=== PATIENT | male | born 1960 | race Caucasian/White ===

== ENCOUNTER 2017-10-05 16:03 | Inpatient (IN) | payer OTHER ==
[2017-10-05 19:41] LABS: ADD MAN DIFF? NO
[2017-10-05 19:46] LABS: WHITE BLOOD COUNT 14.2 10^3/ul (4.8-10.8)
[2017-10-05 19:46] LABS: BASOPHIL # 0.1 10^3/ul (0.0-0.1); BASOPHILS % 0.4 % (0.0-2.0); EOSINOPHILS # 0.2 10^3/ul (0.0-0.5); EOSINOPHILS % 1.2 % (0.0-7.0); HEMATOCRIT 41.8 % (42.0-52.0); HEMOGLOBIN 13.6 g/dl (14.0-18.0); IMMATURE GRANS #M 0.05 10^3/ul; IMMATURE GRANS % (M) 0.4 %; LYMPHOCYTES # 2.4 10^3/ul (0.8-2.9); LYMPHOCYTES % 16.8 % (15.0-51.0); MEAN CORPUSCULAR HEMOGLOBIN 26.3 pg (29.0-33.0); MEAN CORPUSCULAR HGB CONC 32.5 g/dl (32.0-37.0); MEAN CORPUSCULAR VOLUME 80.9 fl (82.0-101.0); MEAN PLATELET VOLUME 11.6 fl (7.4-10.4); MONOCYTE # 1.4 10^3/ul (0.3-0.9); NEUTROPHIL # 10.2 10^3/ul (1.6-7.5); NEUTROPHILS % 71.2 % (39.0-77.0); PLATELET COUNT 286 10^3/UL (140-415); RED BLOOD COUNT 5.17 10^6/ul (4.70-6.10); RED CELL DISTRIBUTION WIDTH 12.9 % (11.5-14.5)
[2017-10-05 20:08] LABS: ANION GAP 17 (8-16); BLOOD UREA NITROGEN 30 mg/dl (7-20); CALCIUM 9.4 mg/dl (8.4-10.2); CARBON DIOXIDE 26 mmol/L (21-31); CHLORIDE 98 mmol/L (97-110); CREATININE 0.99 mg/dl (0.61-1.24); GLUCOSE 181 mg/dl (70-220); POTASSIUM 4.8 mmol/L (3.5-5.1); SODIUM 136 mmol/L (135-144)
[2017-10-05] MEDS: VANCOMYCIN 1 GM (PMX) 250 ML IVPB (20:32)
[2017-10-05] MEDS: SOD CHLORIDE 0.9% 1,000 ML IV (20:32)
[2017-10-05] MEDS: HYDROCODONE/APAP (5/325) TAB PO (21:09)
[2017-10-05] MEDS ORDERED: GLUCOSE GEL 15 GRAM TUBE BUCCAL (23:30)
[2017-10-05] MEDS ORDERED: DEXTROSE 50% 50 ML SYRINGE IV ×2 (23:30)
[2017-10-05] MEDS ORDERED: GLUCAGON 1 MG INJ IM (23:30)
[2017-10-05] MEDS ORDERED: GLUCOSE GEL 15 GRAM TUBE PO ×2 (23:30)
[2017-10-06] MEDS: INSULIN GLARGINE [LANTus] (100 UNITS/ML) SYG SC ×2 (00:10→20:19)
[2017-10-06] MEDS: ACCU-CHEK XX ×4 (07:00→20:22)
[2017-10-06] MEDS ORDERED: VANCOMYCIN IV PER PHARMACY XX (07:30)
[2017-10-06 07:48] LABS: ADD MAN DIFF? NO
[2017-10-06 08:01] LABS: WHITE BLOOD COUNT 11.8 10^3/ul (4.8-10.8)
[2017-10-06 08:01] LABS: BASOPHIL # 0.1 10^3/ul (0.0-0.1); BASOPHILS % 0.4 % (0.0-2.0); EOSINOPHILS # 0.2 10^3/ul (0.0-0.5); LYMPHOCYTES % 17.1 % (15.0-51.0); MEAN CORPUSCULAR HEMOGLOBIN 25.6 pg (29.0-33.0); MEAN CORPUSCULAR HGB CONC 31.6 g/dl (32.0-37.0); MONOCYTE # 1.3 10^3/ul (0.3-0.9); NEUTROPHIL # 8.2 10^3/ul (1.6-7.5); NEUTROPHILS % 69.2 % (39.0-77.0); PLATELET COUNT 275 10^3/UL (140-415); RED BLOOD COUNT 4.69 10^6/ul (4.70-6.10); RED CELL DISTRIBUTION WIDTH 13.1 % (11.5-14.5)
[2017-10-06 08:17] LABS: HEMOGLOBIN A1C 10.4 % (0-5.9)
[2017-10-06 08:36] LABS: ALANINE AMINOTRANSFERASE 22 IU/L (13-69); ALBUMIN 3.3 g/dl (3.3-4.9); ALBUMIN/GLOBULIN RATIO 1.06; ALKALINE PHOSPHATASE 76 IU/L (42-121); ANION GAP 13 (8-16); ASPARTATE AMINO TRANSFERASE 15 IU/L (15-46); BILIRUBIN,INDIRECT 0.4 mg/dl (0-1.1); BILIRUBIN,TOTAL 0.4 mg/dl (0.2-1.3); BLOOD UREA NITROGEN 23 mg/dl (7-20); CALCIUM 8.7 mg/dl (8.4-10.2); CARBON DIOXIDE 28 mmol/L (21-31); CHLORIDE 102 mmol/L (97-110); CHOL/HDL RATIO 4.7 RATIO; CHOLESTEROL 95 mg/dl (100-200); GLUCOSE 194 mg/dl (70-220); HDL CHOLESTEROL 20 mg/dl (28-71); LDL CHOLESTEROL,CALCULATED 54 mg/dl; POTASSIUM 4.4 mmol/L (3.5-5.1); SODIUM 139 mmol/L (135-144); TOTAL PROTEIN 6.4 g/dl (6.1-8.1); TRIGLYCERIDES 103 mg/dl (0-149)
[2017-10-06] MEDS: GABAPENTIN 300 MG CAP PO ×3 (08:38→20:14)
[2017-10-06] MEDS: metFORMIN 500 MG TAB PO ×2 (08:39→17:44)
[2017-10-06] MEDS: METOPROLOL (XL) 50 MG TAB PO (08:39)
[2017-10-06] MEDS: ASPIRIN (EC) 81 MG TAB PO (08:39)
[2017-10-06] MEDS: INSULIN ASPART [NOVOLOG] 3 ML PEN SC ×4 (08:43→20:18)
[2017-10-06] MEDS: HEPARIN 5,000 UNIT/0.5 ML VIAL SC ×2 (08:43→20:18)
[2017-10-06] MEDS ORDERED: TADALAFIL 5 MG PO (09:00)
[2017-10-06] MEDS ORDERED: CEFEPIME 1GM/50 ML (PMX) 50 ML IVPB (09:00)
[2017-10-06] MEDS: ONDANSETRON 4 MG INJ IV (09:19)
[2017-10-06] MEDS: LISINOPRIL 10 MG TAB PO (10:01)
[2017-10-06] MEDS: CEFEPIME 1GM/50 ML (PMX) 50 ML IVPB ×3 (10:02→21:26)
[2017-10-06] MEDS: VANCOMYCIN 1 GM 250 ML IVPB ×2 (12:42→23:33)
[2017-10-06] MEDS: ATORVASTATIN 40 MG TAB PO (20:14)
[2017-10-07] MEDS: CEFEPIME 1GM/50 ML (PMX) 50 ML IVPB (05:42)
[2017-10-07 05:51] LABS: ADD MAN DIFF? NO
[2017-10-07 06:00] LABS: BASOPHIL # 0.1 10^3/ul (0.0-0.1); BASOPHILS % 0.7 % (0.0-2.0); EOSINOPHILS # 0.3 10^3/ul (0.0-0.5); EOSINOPHILS % 2.2 % (0.0-7.0); HEMATOCRIT 38.7 % (42.0-52.0); HEMOGLOBIN 12.2 g/dl (14.0-18.0); LYMPHOCYTES # 2.8 10^3/ul (0.8-2.9); LYMPHOCYTES % 24.3 % (15.0-51.0); MEAN CORPUSCULAR HEMOGLOBIN 25.9 pg (29.0-33.0); MEAN CORPUSCULAR HGB CONC 31.5 g/dl (32.0-37.0); MEAN CORPUSCULAR VOLUME 82.2 fl (82.0-101.0); MEAN PLATELET VOLUME 12.2 fl (7.4-10.4); MONOCYTE # 1.3 10^3/ul (0.3-0.9); MONOCYTES % 10.9 % (0.0-11.0); NEUTROPHIL # 7.2 10^3/ul (1.6-7.5); NEUTROPHILS % 61.5 % (39.0-77.0); PLATELET COUNT 285 10^3/UL (140-415); RED BLOOD COUNT 4.71 10^6/ul (4.70-6.10)
[2017-10-07 06:00] LABS: WHITE BLOOD COUNT 11.7 10^3/ul (4.8-10.8)
[2017-10-07 06:41] LABS: ANION GAP 13 (8-16); BLOOD UREA NITROGEN 19 mg/dl (7-20); CALCIUM 8.8 mg/dl (8.4-10.2); CARBON DIOXIDE 31 mmol/L (21-31); CHLORIDE 100 mmol/L (97-110); CREATININE 1.09 mg/dl (0.61-1.24); GLUCOSE 163 mg/dl (70-220); POTASSIUM 4.9 mmol/L (3.5-5.1); SODIUM 139 mmol/L (135-144)
[2017-10-07] MEDS: ACCU-CHEK XX ×4 (07:00→21:00)
[2017-10-07] MEDS: LISINOPRIL 10 MG TAB PO (08:07)
[2017-10-07] MEDS: metFORMIN 500 MG TAB PO ×2 (08:07→17:45)
[2017-10-07] MEDS: GABAPENTIN 300 MG CAP PO ×3 (08:07→21:39)
[2017-10-07] MEDS: METOPROLOL (XL) 50 MG TAB PO (08:08)
[2017-10-07] MEDS: ASPIRIN (EC) 81 MG TAB PO (08:08)
[2017-10-07] MEDS: HEPARIN 5,000 UNIT/0.5 ML VIAL SC ×2 (08:14→21:43)
[2017-10-07] MEDS: INSULIN ASPART [NOVOLOG] 3 ML PEN SC ×4 (08:14→21:45)
[2017-10-07] MEDS: AMLODIPINE 5 MG TAB PO (12:39)
[2017-10-07] MEDS: VANCOMYCIN 1 GM 250 ML IVPB ×2 (12:39→23:30)
[2017-10-07] MEDS: ATORVASTATIN 40 MG TAB PO (21:39)
[2017-10-07] MEDS: INSULIN GLARGINE [LANTus] (100 UNITS/ML) SYG SC (21:44)
[2017-10-07 23:48] LABS: VANCOMYCIN,TROUGH 10.5 ug/ml (10.0-20.0)
[2017-10-08] MEDS: ACCU-CHEK XX ×4 (07:00→21:00)
[2017-10-08 07:36] LABS: ADD MAN DIFF? NO
[2017-10-08 07:42] LABS: BASOPHIL # 0.1 10^3/ul (0.0-0.1); BASOPHILS % 0.5 % (0.0-2.0); EOSINOPHILS # 0.3 10^3/ul (0.0-0.5); EOSINOPHILS % 2.7 % (0.0-7.0); HEMATOCRIT 37.9 % (42.0-52.0); HEMOGLOBIN 12.3 g/dl (14.0-18.0); LYMPHOCYTES # 2.2 10^3/ul (0.8-2.9); LYMPHOCYTES % 22.6 % (15.0-51.0); MEAN CORPUSCULAR HEMOGLOBIN 26.5 pg (29.0-33.0); MEAN CORPUSCULAR HGB CONC 32.5 g/dl (32.0-37.0); MEAN CORPUSCULAR VOLUME 81.5 fl (82.0-101.0); MEAN PLATELET VOLUME 11.4 fl (7.4-10.4); MONOCYTE # 1.1 10^3/ul (0.3-0.9); PLATELET COUNT 294 10^3/UL (140-415); RED BLOOD COUNT 4.65 10^6/ul (4.70-6.10); RED CELL DISTRIBUTION WIDTH 12.9 % (11.5-14.5)
[2017-10-08 07:42] LABS: WHITE BLOOD COUNT 9.5 10^3/ul (4.8-10.8)
[2017-10-08 08:05] LABS: ANION GAP 13 (8-16); BLOOD UREA NITROGEN 18 mg/dl (7-20); CALCIUM 8.9 mg/dl (8.4-10.2); CARBON DIOXIDE 29 mmol/L (21-31); CHLORIDE 100 mmol/L (97-110); CREATININE 0.97 mg/dl (0.61-1.24); GLUCOSE 175 mg/dl (70-220); POTASSIUM 4.4 mmol/L (3.5-5.1); SODIUM 138 mmol/L (135-144)
[2017-10-08] MEDS: CEFTRIAXONE 1 GM/50 ML (PMX) 50 ML IVPB (08:18)
[2017-10-08] MEDS: RIFAMPIN 300 MG CAP PO (08:23)
[2017-10-08] MEDS: ASPIRIN (EC) 81 MG TAB PO (08:23)
[2017-10-08] MEDS: GABAPENTIN 300 MG CAP PO ×3 (08:23→21:00)
[2017-10-08] MEDS: AMLODIPINE 5 MG TAB PO (08:24)
[2017-10-08] MEDS: METOPROLOL (XL) 50 MG TAB PO (08:24)
[2017-10-08] MEDS: LISINOPRIL 10 MG TAB PO (08:25)
[2017-10-08] MEDS: INSULIN ASPART [NOVOLOG] 3 ML PEN SC ×4 (08:34→21:20)
[2017-10-08] MEDS: metFORMIN 500 MG TAB PO ×2 (08:37→18:43)
[2017-10-08] MEDS: HEPARIN 5,000 UNIT/0.5 ML VIAL SC ×2 (08:40→21:20)
[2017-10-08] MEDS ORDERED: VANCOMYCIN 1.25 GM in SOD CHLORIDE 0.9% 250 ML IVPB (12:00)
[2017-10-08] MEDS: INSULIN GLARGINE [LANTus] (100 UNITS/ML) SYG SC (20:00)
[2017-10-08] MEDS: ATORVASTATIN 40 MG TAB PO (21:00)
[2017-10-09] MEDS: ACETAMINOPHEN 325 MG TAB PO (04:32)
[2017-10-09] MEDS: CEFTRIAXONE 1 GM/50 ML (PMX) 50 ML IVPB (06:18)
[2017-10-09] MEDS: ACCU-CHEK XX ×4 (07:00→21:00)
[2017-10-09] MEDS: INSULIN ASPART [NOVOLOG] 3 ML PEN SC ×4 (08:00→21:00)
[2017-10-09] MEDS: metFORMIN 500 MG TAB PO ×2 (08:00→17:25)
[2017-10-09] MEDS: RIFAMPIN 300 MG CAP PO (08:37)
[2017-10-09] MEDS: AMLODIPINE 5 MG TAB PO ×2 (08:37→14:14)
[2017-10-09] MEDS: ASPIRIN (EC) 81 MG TAB PO (08:37)
[2017-10-09] MEDS: METOPROLOL (XL) 50 MG TAB PO ×2 (08:37→14:15)
[2017-10-09] MEDS: LISINOPRIL 10 MG TAB PO ×2 (08:37→14:14)
[2017-10-09] MEDS: HEPARIN 5,000 UNIT/0.5 ML VIAL SC ×2 (08:37→21:19)
[2017-10-09] MEDS: GABAPENTIN 300 MG CAP PO ×4 (08:37→21:13)
[2017-10-09] MEDS ORDERED: FENTAnyl 50 MCG/ML VIAL (12:21)
[2017-10-09] MEDS ORDERED: MIDAZOLAM 1 MG/ML 2 ML INJ (12:21)
[2017-10-09] MEDS: LIDOCAINE 1% (MPF) 30 ML INJ (12:50)
[2017-10-09] MEDS: BUPIVACAINE 0.5% (SDV) 30 ML INJ (12:50)
[2017-10-09] MEDS ORDERED: ONDANSETRON 4 MG INJ IV (13:00)
[2017-10-09] MEDS ORDERED: FENTAnyl 50 MCG/ML VIAL IV ×3 (13:00)
[2017-10-09] MEDS ORDERED: MEPERIDINE 25 MG INJ IV (13:00)
[2017-10-09] MEDS ORDERED: DIPHENHYDRAMINE 50 MG INJ IV (13:00)
[2017-10-09] MEDS ORDERED: HYDROmorphONE 1 MG/5 ML IV SYRINGE IV ×3 (13:00)
[2017-10-09] MEDS ORDERED: PROCHLORPERAZINE 10 MG INJ IV (13:00)
[2017-10-09] MEDS ORDERED: hydrALAzine 20 MG INJ (13:01)
[2017-10-09] MEDS: hydrALAzine 20 MG INJ IV (13:12)
[2017-10-09] MEDS: ATORVASTATIN 40 MG TAB PO (21:12)
[2017-10-09] MEDS: INSULIN GLARGINE [LANTus] (100 UNITS/ML) SYG SC (21:19)
[2017-10-10 06:02] LABS: ADD MAN DIFF? NO
[2017-10-10 06:05] LABS: WHITE BLOOD COUNT 10.3 10^3/ul (4.8-10.8)
[2017-10-10 06:05] LABS: BASOPHIL # 0.1 10^3/ul (0.0-0.1); BASOPHILS % 0.7 % (0.0-2.0); EOSINOPHILS # 0.2 10^3/ul (0.0-0.5); EOSINOPHILS % 2.1 % (0.0-7.0); HEMATOCRIT 39.3 % (42.0-52.0); HEMOGLOBIN 12.5 g/dl (14.0-18.0); LYMPHOCYTES # 2.4 10^3/ul (0.8-2.9); LYMPHOCYTES % 22.8 % (15.0-51.0); MEAN CORPUSCULAR HGB CONC 31.8 g/dl (32.0-37.0); MEAN CORPUSCULAR VOLUME 81.7 fl (82.0-101.0); MEAN PLATELET VOLUME 11.5 fl (7.4-10.4); MONOCYTE # 1.1 10^3/ul (0.3-0.9); MONOCYTES % 10.9 % (0.0-11.0); NEUTROPHIL # 6.5 10^3/ul (1.6-7.5); NEUTROPHILS % 63.1 % (39.0-77.0); PLATELET COUNT 332 10^3/UL (140-415); RED BLOOD COUNT 4.81 10^6/ul (4.70-6.10)
[2017-10-10] MEDS: CEFTRIAXONE 1 GM/50 ML (PMX) 50 ML IVPB (06:10)
[2017-10-10 06:48] LABS: ANION GAP 13 (8-16); BLOOD UREA NITROGEN 19 mg/dl (7-20); CALCIUM 9.2 mg/dl (8.4-10.2); CARBON DIOXIDE 34 mmol/L (21-31); CHLORIDE 97 mmol/L (97-110); CREATININE 0.96 mg/dl (0.61-1.24); GLUCOSE 128 mg/dl (70-220); POTASSIUM 4.5 mmol/L (3.5-5.1); SODIUM 139 mmol/L (135-144)
[2017-10-10] MEDS: ACCU-CHEK XX ×4 (07:00→21:00)
[2017-10-10] MEDS: INSULIN ASPART [NOVOLOG] 3 ML PEN SC ×4 (08:00→21:00)
[2017-10-10] MEDS: RIFAMPIN 300 MG CAP PO (08:10)
[2017-10-10] MEDS: ASPIRIN (EC) 81 MG TAB PO (08:10)
[2017-10-10] MEDS: metFORMIN 500 MG TAB PO ×2 (08:10→17:37)
[2017-10-10] MEDS: GABAPENTIN 300 MG CAP PO ×3 (08:10→20:18)
[2017-10-10] MEDS: AMLODIPINE 5 MG TAB PO (08:11)
[2017-10-10] MEDS: LISINOPRIL 10 MG TAB PO (08:12)
[2017-10-10] MEDS: METOPROLOL (XL) 50 MG TAB PO (08:12)
[2017-10-10] MEDS: HEPARIN 5,000 UNIT/0.5 ML VIAL SC ×2 (08:19→20:29)
[2017-10-10] MEDS: ONDANSETRON 4 MG INJ IV (11:39)
[2017-10-10] MEDS: ATORVASTATIN 40 MG TAB PO (20:18)
[2017-10-10] MEDS: DIPHENOXYLATE/ATROPINE TAB PO (20:18)
[2017-10-10] MEDS: INSULIN GLARGINE [LANTus] (100 UNITS/ML) SYG SC (20:29)
[2017-10-10] MEDS: SACCHAROMYCES BOULARDII 250 MG CAP PO (21:00)
[2017-10-11] MEDS: CEFTRIAXONE 1 GM/50 ML (PMX) 50 ML IVPB (06:09)
[2017-10-11 06:36] LABS: ADD MAN DIFF? NO
[2017-10-11 06:38] LABS: WHITE BLOOD COUNT 10.1 10^3/ul (4.8-10.8)
[2017-10-11 06:38] LABS: BASOPHIL # 0.1 10^3/ul (0.0-0.1); BASOPHILS % 0.5 % (0.0-2.0); EOSINOPHILS # 0.3 10^3/ul (0.0-0.5); EOSINOPHILS % 2.7 % (0.0-7.0); HEMATOCRIT 38.4 % (42.0-52.0); HEMOGLOBIN 12.1 g/dl (14.0-18.0); LYMPHOCYTES # 2.2 10^3/ul (0.8-2.9); LYMPHOCYTES % 21.4 % (15.0-51.0); MEAN CORPUSCULAR HGB CONC 31.5 g/dl (32.0-37.0); MEAN CORPUSCULAR VOLUME 82.6 fl (82.0-101.0); MEAN PLATELET VOLUME 11.4 fl (7.4-10.4); MONOCYTES % 9.9 % (0.0-11.0); NEUTROPHIL # 6.6 10^3/ul (1.6-7.5); NEUTROPHILS % 64.8 % (39.0-77.0); PLATELET COUNT 328 10^3/UL (140-415); RED BLOOD COUNT 4.65 10^6/ul (4.70-6.10); RED CELL DISTRIBUTION WIDTH 12.9 % (11.5-14.5)
[2017-10-11] MEDS: ACCU-CHEK XX ×4 (07:00→21:00)
[2017-10-11 07:06] LABS: ANION GAP 13 (8-16); BLOOD UREA NITROGEN 28 mg/dl (7-20); CALCIUM 8.7 mg/dl (8.4-10.2); CARBON DIOXIDE 31 mmol/L (21-31); CHLORIDE 97 mmol/L (97-110); GLUCOSE 164 mg/dl (70-220); POTASSIUM 4.1 mmol/L (3.5-5.1); SODIUM 137 mmol/L (135-144)
[2017-10-11] MEDS: metFORMIN 500 MG TAB PO ×2 (08:00→18:05)
[2017-10-11] MEDS: INSULIN ASPART [NOVOLOG] 3 ML PEN SC ×4 (08:00→22:31)
[2017-10-11] MEDS: SACCHAROMYCES BOULARDII 250 MG CAP PO ×2 (09:00→23:18)
[2017-10-11] MEDS: RIFAMPIN 300 MG CAP PO (09:24)
[2017-10-11] MEDS: METOPROLOL (XL) 50 MG TAB PO (09:24)
[2017-10-11] MEDS: LISINOPRIL 10 MG TAB PO (09:26)
[2017-10-11] MEDS: AMLODIPINE 5 MG TAB PO (09:26)
[2017-10-11] MEDS: ASPIRIN (EC) 81 MG TAB PO (09:26)
[2017-10-11] MEDS: HEPARIN 5,000 UNIT/0.5 ML VIAL SC ×2 (09:27→22:37)
[2017-10-11] MEDS: GABAPENTIN 300 MG CAP PO ×3 (09:30→22:31)
[2017-10-11] MEDS: ATORVASTATIN 40 MG TAB PO (22:31)
[2017-10-11] MEDS: INSULIN GLARGINE [LANTus] (100 UNITS/ML) SYG SC (22:37)
[2017-10-12] MEDS: DIPHENOXYLATE/ATROPINE TAB PO (02:16)
[2017-10-12] MEDS: ACCU-CHEK XX ×4 (07:00→20:54)
[2017-10-12 07:13] LABS: ADD MAN DIFF? NO
[2017-10-12 07:16] LABS: WHITE BLOOD COUNT 9.3 10^3/ul (4.8-10.8)
[2017-10-12 07:16] LABS: BASOPHIL # 0.1 10^3/ul (0.0-0.1); BASOPHILS % 0.8 % (0.0-2.0); EOSINOPHILS # 0.2 10^3/ul (0.0-0.5); EOSINOPHILS % 2.4 % (0.0-7.0); HEMATOCRIT 38.3 % (42.0-52.0); HEMOGLOBIN 12.1 g/dl (14.0-18.0); LYMPHOCYTES # 2.4 10^3/ul (0.8-2.9); LYMPHOCYTES % 25.9 % (15.0-51.0); MEAN CORPUSCULAR HEMOGLOBIN 25.8 pg (29.0-33.0); MEAN CORPUSCULAR HGB CONC 31.6 g/dl (32.0-37.0); MEAN CORPUSCULAR VOLUME 81.7 fl (82.0-101.0); MEAN PLATELET VOLUME 11.8 fl (7.4-10.4); MONOCYTE # 0.9 10^3/ul (0.3-0.9); MONOCYTES % 9.8 % (0.0-11.0); NEUTROPHIL # 5.6 10^3/ul (1.6-7.5); NEUTROPHILS % 60.5 % (39.0-77.0); PLATELET COUNT 338 10^3/UL (140-415); RED BLOOD COUNT 4.69 10^6/ul (4.70-6.10); RED CELL DISTRIBUTION WIDTH 13.2 % (11.5-14.5)
[2017-10-12 07:45] LABS: PHOSPHORUS 3.3 mg/dl (2.5-4.9)
[2017-10-12 07:45] LABS: MAGNESIUM 1.7 mg/dl (1.7-2.5)
[2017-10-12 07:55] LABS: ANION GAP 14 (8-16); BLOOD UREA NITROGEN 19 mg/dl (7-20); CALCIUM 9.3 mg/dl (8.4-10.2); CARBON DIOXIDE 31 mmol/L (21-31); CHLORIDE 97 mmol/L (97-110); CREATININE 0.87 mg/dl (0.61-1.24); GLUCOSE 118 mg/dl (70-220); POTASSIUM 4.5 mmol/L (3.5-5.1); SODIUM 137 mmol/L (135-144)
[2017-10-12] MEDS: INSULIN ASPART [NOVOLOG] 3 ML PEN SC ×4 (08:00→20:33)
[2017-10-12] MEDS: metFORMIN 500 MG TAB PO ×2 (10:39→18:10)
[2017-10-12] MEDS: SACCHAROMYCES BOULARDII 250 MG CAP PO ×2 (10:39→20:33)
[2017-10-12] MEDS: AMLODIPINE 5 MG TAB PO (10:40)
[2017-10-12] MEDS: ASPIRIN (EC) 81 MG TAB PO (10:40)
[2017-10-12] MEDS: RIFAMPIN 300 MG CAP PO (10:40)
[2017-10-12] MEDS: LISINOPRIL 10 MG TAB PO (10:41)
[2017-10-12] MEDS: HEPARIN 5,000 UNIT/0.5 ML VIAL SC ×2 (10:42→20:33)
[2017-10-12] MEDS: METOPROLOL (XL) 50 MG TAB PO (10:43)
[2017-10-12] MEDS: LEVOFLOXACIN 500 MG TAB PO (10:58)
[2017-10-12] MEDS: GABAPENTIN 300 MG CAP PO ×3 (10:59→20:26)
[2017-10-12 12:46] LABS: IRON 63 ug/dl (35-150)
[2017-10-12 12:56] LABS: % IRON SATURATION 26 % SAT (22-52); TOTAL IRON BINDING CAPACITY 243 ug/dl (241-421)
[2017-10-12] MEDS: ATORVASTATIN 40 MG TAB PO (20:26)
[2017-10-12] MEDS: INSULIN GLARGINE [LANTus] (100 UNITS/ML) SYG SC (20:32)
[2017-10-13] MEDS: DIPHENOXYLATE/ATROPINE TAB PO ×3 (00:06→17:27)
[2017-10-13] MEDS: LEVOFLOXACIN 500 MG TAB PO (06:13)
[2017-10-13] MEDS: ACCU-CHEK XX ×4 (07:00→20:47)
[2017-10-13] MEDS: INSULIN ASPART [NOVOLOG] 3 ML PEN SC ×4 (08:00→20:40)
[2017-10-13] MEDS: RIFAMPIN 300 MG CAP PO (09:32)
[2017-10-13] MEDS: SACCHAROMYCES BOULARDII 250 MG CAP PO ×2 (09:33→20:40)
[2017-10-13] MEDS: METOPROLOL (XL) 50 MG TAB PO (09:34)
[2017-10-13] MEDS: LISINOPRIL 10 MG TAB PO (09:35)
[2017-10-13] MEDS: AMLODIPINE 5 MG TAB PO (09:35)
[2017-10-13] MEDS: GABAPENTIN 300 MG CAP PO ×3 (09:35→20:40)
[2017-10-13] MEDS: ASPIRIN (EC) 81 MG TAB PO (09:35)
[2017-10-13] MEDS: HEPARIN 5,000 UNIT/0.5 ML VIAL SC ×2 (09:44→20:45)
[2017-10-13] MEDS: metFORMIN 500 MG TAB PO ×2 (09:46→17:25)
[2017-10-13] MEDS: ATORVASTATIN 40 MG TAB PO (20:40)
[2017-10-13] MEDS: INSULIN GLARGINE [LANTus] (100 UNITS/ML) SYG SC (20:44)
[2017-10-14] MEDS: LEVOFLOXACIN 500 MG TAB PO (06:41)
[2017-10-14] MEDS: ACCU-CHEK XX ×2 (07:00→11:30)
[2017-10-14] MEDS: INSULIN ASPART [NOVOLOG] 3 ML PEN SC ×2 (08:00→12:00)
[2017-10-14] MEDS: SACCHAROMYCES BOULARDII 250 MG CAP PO (08:20)
[2017-10-14] MEDS: ASPIRIN (EC) 81 MG TAB PO (08:20)
[2017-10-14] MEDS: metFORMIN 500 MG TAB PO (08:20)
[2017-10-14] MEDS: METOPROLOL (XL) 50 MG TAB PO (08:21)
[2017-10-14] MEDS: RIFAMPIN 300 MG CAP PO (08:21)
[2017-10-14] MEDS: GABAPENTIN 300 MG CAP PO ×2 (08:21→12:22)
[2017-10-14] MEDS: AMLODIPINE 5 MG TAB PO (08:23)
[2017-10-14] MEDS: LISINOPRIL 10 MG TAB PO (08:23)
[2017-10-14] MEDS: HEPARIN 5,000 UNIT/0.5 ML VIAL SC (08:39)
== END 2017-10-14 14:45 | disposition home health service (06) | DRG 854 ==
LOC: E/R 16:03 → 2NE 21:00
PROC: 0JBP0ZZ Excision of Left Lower Leg Subcutaneous Tissue and Fascia, Open Approach (ICD-10-PCS; principal; 2017-10-09 12:21)
DX: A41.9 Sepsis, unspecified organism (principal); L03.116 Cellulitis of left lower limb; L02.416 Cutaneous abscess of left lower limb; L97.829 Non-pressure chronic ulcer of other part of left lower leg with unspecified severity; I25.10 Atherosclerotic heart disease of native coronary artery without angina pectoris; I10 Essential (primary) hypertension; I25.2 Old myocardial infarction; E78.5 Hyperlipidemia, unspecified; D64.9 Anemia, unspecified; E11.622 Type 2 diabetes mellitus with other skin ulcer; I70.203 Unspecified atherosclerosis of native arteries of extremities, bilateral legs; Z95.1 Presence of aortocoronary bypass graft
CPT/HCPCS: 73719; 76536; 80048; 80053; 80061; 80202; 82728; 82962; 83036; 83540; 83735; 84100; 85025; 87070; 87075; 87102; 87116; 93005; 93922; 96365; 99285-25

== ENCOUNTER 2018-10-12 13:07 | Emergency (ER) | payer OTHER ==
[2018-10-12 14:10] LABS: ADD MAN DIFF? NO
[2018-10-12 14:12] LABS: WHITE BLOOD COUNT 9.7 10^3/ul (4.8-10.8)
[2018-10-12 14:12] LABS: BASOPHIL # 0.1 10^3/ul (0.0-0.1); BASOPHILS % 0.5 % (0.0-2.0); EOSINOPHILS # 0.2 10^3/ul (0.0-0.5); EOSINOPHILS % 1.9 % (0.0-7.0); HEMATOCRIT 39.7 % (42.0-52.0); HEMOGLOBIN 12.7 g/dl (14.0-18.0); LYMPHOCYTES # 2.1 10^3/ul (0.8-2.9); MEAN CORPUSCULAR HEMOGLOBIN 26.4 pg (29.0-33.0); MEAN CORPUSCULAR VOLUME 82.5 fl (82.0-101.0); MEAN PLATELET VOLUME 11.9 fl (7.4-10.4); MONOCYTE # 0.8 10^3/ul (0.3-0.9); MONOCYTES % 8.1 % (0.0-11.0); NEUTROPHIL # 6.5 10^3/ul (1.6-7.5); NEUTROPHILS % 67.2 % (39.0-77.0); PLATELET COUNT 263 10^3/UL (140-415); RED BLOOD COUNT 4.81 10^6/ul (4.70-6.10); RED CELL DISTRIBUTION WIDTH 13.9 % (11.5-14.5)
[2018-10-12 14:33] LABS: ANION GAP 10 (5-13); BLOOD UREA NITROGEN 41 mg/dl (7-20); CALCIUM 9.7 mg/dl (8.4-10.2); CARBON DIOXIDE 28 mmol/L (21-31); CHLORIDE 98 mmol/L (97-110); Estimated GFR 37 mL/min (>60); GLUCOSE 268 mg/dl (70-220); POTASSIUM 4.6 mmol/L (3.5-5.1); SODIUM 136 mmol/L (135-144)
[2018-10-12 14:44] LABS: TROPONIN-I < 0.012 ng/ml (0.000-0.120)
[2018-10-12] MEDS ORDERED: morphine 2 MG INJ IV (14:51)
[2018-10-12] MEDS ORDERED: ONDANSETRON 4 MG INJ IV (14:51)
[2018-10-12] MEDS: SOD CHLORIDE 0.9% 500 ML IV (16:21)
[2018-10-12] MEDS: ONDANSETRON (ODT) 4 MG TAB ODT (16:23)
[2018-10-12] MEDS: HYDROCODONE/APAP (5/325) TAB PO (16:23)
== END 2018-10-12 17:12 | disposition home or self-care (01) ==
LOC: E/R 13:07
DX: N17.9 Acute kidney failure, unspecified (principal); E86.0 Dehydration; D64.9 Anemia, unspecified; I10 Essential (primary) hypertension; E11.9 Type 2 diabetes mellitus without complications; I25.810 Atherosclerosis of coronary artery bypass graft(s) without angina pectoris; Z79.4 Long term (current) use of insulin
CPT/HCPCS: 71045; 80048; 84484; 85025; 93005; 99285-25

== ENCOUNTER 2018-10-25 14:46 | Emergency (ER) | payer OTHER | END 2018-10-25 16:58 | disposition home or self-care (01) | LOC: FTE 14:46 → E/R 16:58 | DX: R42 Dizziness and giddiness (principal); E11.9 Type 2 diabetes mellitus without complications; I10 Essential (primary) hypertension; Z79.4 Long term (current) use of insulin; Z79.82 Long term (current) use of aspirin; Z95.1 Presence of aortocoronary bypass graft | CPT/HCPCS: 82962; 93005; 99283-25 ==